=== PATIENT | female | born 1950 | race Caucasian/White ===

== ENCOUNTER → 2017-07-15 | Outpatient (CLI) | payer MEDICARE ==
[~2017-07-15] MED LIST: ALBU0.08 NEB; ALBUAER3 INH; ALPR0.5T3; ALPR0.5T3 PO; AMLO2.5T PO; ASPI81TA81 PO; DIAZ5TAB; DULO1CAP3 PO; EPIP0.3I IM; FEXO15TA PO; FLUT1SPR5 EACH NARE; LEVO75TA3 PO; PERC5TAB12 PO; TERC0.8C
[2017-07-15 09:41] LABS: BLOOD, URINE NEG (NEG); COMMENT (UR) CULT NOT INDICATED; CULTURE IF INDICATED CULT NOT INDICATED; GLUCOSE,URINE NEG (NEG); KETONE, URINE NEG (NEG); MUCUS URINE FEW /lpf (OCC); NITRITE,URINE NEG (NEG); SQUAMOUS EPITHELIAL CELL URINE <1 /hpf (0-5); URINE COLOR YELLOW (YELLW/STRAW)
[2017-07-15 09:53] LABS: APTT (PATIENT) 26.8 SEC (24.3-30.1); INTERNATIONAL NORMALIZED RATIO 0.9 RATIO; PROTHROMBIN TIME - PATIENT 10.4 SEC (9.8-11.6)
--- NOTE | 2017-07-15 10:14 | RADRPT ---
EXAM DATE/TIME: 07/15/2017 09:57 [place] COMPARISON: No previous studies available for comparison. INDICATIONS : Evaluate for pneumonia, pneumothorax or communicable disease back surgery 07/21 MEDICAL HISTORY : Hypertension. Asthma SURGICAL HISTORY : None. ENCOUNTER: Initial ACUITY: 1 day PAIN SCORE: 0/10 LOCATION: chest FINDINGS: PA and lateral views of the chest demonstrate the lungs to be symmetrically aerated without evidence of mass, infiltrate or effusion. The cardiomediastinal contours are unremarkable. Osseous structure s are intact. CONCLUSION: Normal examination for a patient of this age. Juanjo Mckeon MD on July 15, 2017 at 10:12 Board Certified Radiologist. This report was verified electronically.
== END ==
LOC: CPRE 08:18
PROVIDERS: ATTEND Neurological Surgery
DX: Z01.812 Encounter for preprocedural laboratory examination (principal); M43.10 Spondylolisthesis, site unspecified; Z01.818 Encounter for other preprocedural examination
CPT/HCPCS: 36415; 71020; 81001; 85610; 85730

== ENCOUNTER 2017-07-21 06:04 | Inpatient (IN) | payer MEDICARE ==
[~2017-07-21] VITALS: Ht 167.6 cm; Wt 78.2 kg
[~2017-07-21 06:04] MED LIST changes: -ALPR0.5T3; -DIAZ5TAB
[2017-07-21] MEDS ORDERED: SODIUM CHLORID 0.9% 500 ML IV PRN (06:30)
[2017-07-21] MEDS ORDERED: POVIDONE IODINE 5% (ANTISEPSIS KIT) 4 APPLICATIONS EACH NARE PRN (06:30)
[2017-07-21] MEDS ORDERED: INSULIN HUMAN REGULAR 1,000 UNITS/10 ML VIAL SQ PRN (06:30)
[2017-07-21] MEDS ORDERED: LACTATED RINGER'S 1000 ML IV PRN (06:30)
[2017-07-21] MEDS ORDERED: METOPROLOL TARTRATE 25 MG TAB PO PRN (06:30)
[2017-07-21] MEDS ORDERED: CHLORHEXIDINE GLUCONATE 2 % 1 PACK (2 CLOTHS) TOPICAL PRN (06:30)
[2017-07-21] MEDS ORDERED: SODIUM CHLOR 0.9% 1000 ML INJ 1,000 ML IV SCH (06:45)
[2017-07-21] MEDS ORDERED: VANCOMYCIN HCL 1000 MG ON-CALL/NS 250 ML IV SCH ×2 (06:45)
[2017-07-21] MEDS ORDERED: ARTIFICIAL TEARS OPTH OINT 3.5 APPLIC/3.5 GM TUBO ONE (06:58)
[2017-07-21] MEDS ORDERED: ACETAMINOPHEN 1000 MG/100 ML 100 ML IV ONE (06:58)
[2017-07-21] MEDS ORDERED: FAMOTIDINE 20 MG/2 ML VIAL ONE (06:58)
[2017-07-21] MEDS ORDERED: PROPOFOL 500 MG/50 ML INJ 100 ML ONE (06:58)
[2017-07-21] MEDS ORDERED: VANCOMYCIN HCL 1000 MG VIAL ONE (07:27)
[2017-07-21] MEDS ORDERED: THROMBIN (TOPICAL) 5,000 UNIT VIAL ONE (07:27)
[2017-07-21] MEDS ORDERED: ceFAZolin 2 GM PREMIX 50 ML ONE (07:28)
[2017-07-21] MEDS ORDERED: BUPIVACAINE HCL PF 0.5% 30 ML VIAL ONE (07:29)
[2017-07-21] MEDS ORDERED: GENTAMICIN SULFATE 80 MG/2 ML VIAL ONE (07:29)
[2017-07-21] MEDS ORDERED: GELFOAM SIZE 100 ONE (07:29)
[2017-07-21] MEDS ORDERED: CHLORHEXIDINE GLUCONATE 2 % 1 PACK (2 CLOTHS) TOPICAL SCH (09:00)
[2017-07-21] MEDS ORDERED: RESP: ALBUTEROL 2.5 MG/3 ML NEB (PRN) NEB (10:00)
[2017-07-21] MEDS ORDERED: ALBUTEROL SULFATE 90 MCG/ACT HFA 8 GM INHALER INH PRN (10:00)
[2017-07-21] MEDS ORDERED: MORPHINE SULFATE 4 MG/ML INJ IV PUSH PRN ×2 (10:00)
[2017-07-21] MEDS ORDERED: EPINEPHrine HCL 0.3 MG SYR IM PRN (10:00)
[2017-07-21] MEDS ORDERED: ACETAMINOPHEN 325 MG TAB PO PRN (10:00)
[2017-07-21] MEDS ORDERED: ALPRAZolam 0.5 MG TAB PO PRN (10:00)
[2017-07-21] MEDS ORDERED: SODIUM CHLORIDE 0.9% FLUSH 5 ML FLUSH IVF PRN (10:00)
[2017-07-21] MEDS ORDERED: oxyCODONE/ACETAMINOPHEN 5 MG/325 MG TAB PO PRN (10:00)
[2017-07-21] MEDS ORDERED: NALOXONE HCL 0.4 MG/ML AMP IV PUSH PRN ×2 (10:00→14:45)
[2017-07-21] MEDS ORDERED: ceFAZolin 2 GM PREMIX 50 ML IV ONE (11:10)
[2017-07-21] MEDS ORDERED: DO NOT ADM ANY ANTICOAGULANT DRUGS PRN (13:30)
[2017-07-21] MEDS: NS + KCL 20 MEQ INJ 1,000 ML IV SCH ×2 (13:30→20:26)
[2017-07-21] MEDS: PCA - TOTAL MG DILAUDID DELIVERED PER SHIFT SCH ×2 (14:00→21:57)
--- NOTE | 2017-07-21 14:09 | PD.OP ---
Operative Report Date of Surgery: Jul 21, 2017 Preoperative Diagnosis: spondylolisthesis L4-L5 Postoperative Diagnosis: spondylolisthesis L4-L5 Procedure: L4-5 redo lumbar laminectomy, interbody arthrodhesis using PEEK cage and autologous bone graft, L4-5 instrumental fixation using transpedicular screws and rods, L4-5 posterolateral fusion using autologous bone graft and rods. Microsurgical dissection Anesthesia: general Surgeon: Dilip Werner Learning Analyst(s): Rosalba Vernon Operation and Findings: INDICATIONS FOR THE SURGICAL PROCEDURE Ms Booker is a 67 year-old female who presented with intractable mechanical back pain and nick evidence of L5 lower extremity radiculopathy. She has history of prior L4-5 laminectomy, and developed spondylolisthesis. The patient has failed maximum nonsurgical management including multiple modalities of conservative treatment as well as pain management interventions by an interventional pain specialist. A surgical decompression and arthrodhesis were indicated as a last resort. The [id number] details of the procedure, indications, alternatives, risks and potential complications were fully discussed with the patient. The patient fully understood. All the questions were answered. No guarantees were given. The patient voiced requesting the procedure and provided informed consents. The patient was offered the alternative of delaying the procedure and continuing with nonsurgical management. DETAILS OF THE SURGICAL PROCEDURE Prior to the procedure, the surgical incision was marked in the preoperative surgical holding room, and the procedure, risks, and potential complications revisited with the patient. Placement of electrodes for intraoperative neurophysiological monitoring was completed. The patient was taken to the operative room, and following induction of general anesthesia, endotracheal intubation was performed. A Felton catheter, bilateral ARTI hose and sequential compression devices were placed and kept throughout the procedure. The patient was positioned prone, over a Van table over a Everette frame. All pressure in the preoperative surgical holding room points were carefully padded with eggcrate and gel mattress. The eyes were tapped shut after ointment was applied by the anesthesiologist to prevent corneal abrasion. A Rock hugger was placed over the expossed lower body to maintain control of the core body temperature. The electrophysiological team placed the needles and electrodes in their proper location and baseline SSEP's and motor evoked potentials were registered prior and following the positioning. The entrance to each pedicles was marked using a C arm. The lumbar region was prepped and draped in the usual sterile fashion. The surgical procedure was performed in several steps as follow: SURGICAL APPROACH Once the patient was positioned, a localizing cross-table lateral x-ray was performed with a C-arm. Two paramedian small incisions were outlined on the skin approximately 3cm from the midline. The skin incisions were made with a # 10 blade. Small bleeders were controlled with the cautery. The dissection was then carried out into deper planes and through the thoracolumbar fascia with a Bovie. The intermuscular septum was identified and the muscles were blunted dissected along the septum. The facets and transverse process of L4 and L5 were exposed and the proper anatomical landmarks were identified. A microsurgical self-retaining retractor was placed on the incision, and a localizing lateralizing cross-table x-ray was performed with an instrument underneath a lamina of the lumbar spine. There was a bilateral pars defect with gross instability of the bony structures. INSTRUMENTAL FIXATION At this point in the procedure, placement of bilateral transpedicular screws was necessary for stabilization of the spine. Initially, the entry point for the screw was selected anatomically at the junction of the facet, with the transverse process, and the pars interarticularis at L5 and at the sacrum. This was started with a Giamshetti needle, followed by the use of an solorzano wire, and then a tap was used to create the threads for the screws. Finally bilateral transpedicular screws were carefully placed bilaterally at L4 and L5 under fluoroscopic visualization. An appropriate purchase was achieved with all screws. The position of each screw was assessed anatomically with an AP, lateral , oblique Xrays. An intraoperative scan view of the spine was then performed using the iso-centric c-arm. Each screw was then assessed electrophysiologically with a nerve stimulator. SURGICAL DECOMPRESSION There was significant mass effect with compression of the neural structures. In order to relieve neural compression, it was necessary to perform a decompressive laminectomy, with decompression of the spinal canal and bilateral lateral recesses. Note that the scope of such decompression was significantly more extensive than the minimal exposure necessary to perform an interbody fusion, as there was extreme facet arthropathy with near complete collapse of the disk spaces and severe stenosis cause by the hyperthrophic joint facets. At this point of the procedure the operative microscope was draped in the usual sterile fashion and brought to the field. The rest of the surgical procedure was performed using microdissection technique with the exception of the closure. Once the level was confirmed, the margins of the prior laminectomy were exposed. There was extensive scar tissue from the prior surgery. Once the bony margins were exposed, a laminectomy was performed extending slightly the prior opening using the TPS drill with an AM-8 drill bit. A medial facetectomy was performed and the superior free border of the ligamentum flavum was dissected with a ligament dissector and removed with a thin footplate 2 mm Kerrison. The scar tssue was carefully dissected from the dural sac and the L5 nerve root was identified and followed towards its exit in the foramen. A foraminotomy was done. Epidural veins located laterally to the dural sac were coagulated with the bipolar cautery, and then incised using microscissors. Gentle medial retraction of the dural sac allowed me to expose the disc space for the discectomy. Upon completion of the discectomy, an excellent decompression of the neural structures was achieved. INTERBODY ARTHRODHESIS In order to correct the narrowing of the disk space and maintain distraction of the space, and to achieve a solid interbody fusion, it was necessary the insertion of an interbody device into the disk space. Otherwise, the disk space would collapse, compromising the result of the surgical procedure. At this point of the procedure, the annulus fibrosus of the disk was carefully coagulated with a bipolar cautery and incised using an 11 bladed knife. Then, a microdiscectomy was carried out in a standard fashion using a combination of straight and up-biting pituitary forceps. A reverse angle curette was applied underneath the posterior longitudinal ligament, and used to push the disk fragments into the disk space, so they can be safely removed with a pituitary forceps. Once the discectomy was completed, it was necessary to decorticate the endplates, in order to eliminate the cartilaginous endplate and to expose healthy bone appropriate to perform the interbody fusion. The endplates at L4-5 were then thoroughly decorticated using increasing size bone nayeli and ring curets, eliminating the cartilaginous fragments from both, the superior and inferior endplates. A disk space distractor was applied to the pedicle screws and gentle distraction was applied. This maneuver was assisted by the use of a disk distractor. Once a thorough preparation of the disk space was achieved, the disk space was irrigated with antibiotic solution, and the interbody fusion was performed by carefully impacting expandable PPEK cage filled with autologous iliac crest bone graft. The cage was properly deployed and thereafter packed with further bone graft by the use of a funnel. A solid position of the cage with good purchase was achieved at both levels. The position of the cages were assessed anatomically with a probe and radiologically with the C-arm. POSTEROLATERAL FUSION The posterolateral fusion is a critical component to the procedure, to prevent future fatigue and failure of the instrumental fixation. Initially, the transverse processes of the vertebral bodies, lateral surface of the facets and the lateral gutters of the spine were carefully cleaned, eliminating all soft tissue and muscle attachments. The area was then irrigated with a large amount of antibiotic solution. Subsequently, the transverse processes, lateral surface of the facets, and lateral gutters of the spine were thoroughly decorticated using the TPS drill with a 5mm cutting antionette, exposing cancellous bone, in preparation for the posterolateral fusion. The incision was again irrigated with antibiotic solution. Then, the posterolateral fusion was then performed by carefully packing the lateral gutters of the spine at L4-5 with autologous bone combined with demineralized bone matrix. I packed as much bone as possible. COMPLETION OF THE INSTRUMENTATION AND CLOSURE The rods were brought to the field, applied to all the screws, and the screw caps were sequentially applied. Compression was performed between the pedicle screws, and final tightening of the screws was completed using a torque wrench The incision was again thoroughly irrigated with several liters of antibiotic solution, and hemostasis secured with the bipolar cautery. A Valsalva Maneuver performed by the anesthesiologist failed to show any evidence of cerebrospinal fluid leak or bleeding. A 7 mm Van-Frost drain was left in the epidural space and externalized through a separate stab incision. The incision was then closed in planes. 0 Vicryl was used in an interrupted fashion to close the thoracolumbar fascia and the superficial fascia. The subcutaneous tissue was then approximated using 3-0 Vicryl in an interrupted fashion. Special care was taken to avoid space. The skin was then closed with 4-0 Vicryl in a running, subcuticular fashion. Dermabond was applied to the skin. Each plane of closure was irrigated with antibiotic solution. At the end of the procedure the sponge, needle and instrument counts were all correct. Estimated blood loss was 200 cc or less. No blood transfusion was given. The entire procedure was performed using continuous electrophysiological monitoring of the somatosensorial evoked potentials and EMG. The patient received prophylactic antibiotics. The patient was then extubated and transferred to the recovery room in stable condition. Dilip Werner MD Jul 21, 2017 14:09
[2017-07-21] MEDS ORDERED: FLUTICASONE PROPIONATE 50 MCG/ACT 16 GM NASAL SPRAY EACH NARE PRN (14:30)
--- NOTE | 2017-07-21 14:40 | PD.CONS ---
HPI Service [facility] Consult Requested By Dr. Werner Reason for Consult Medical management Primary Care Physician Beatrice Steiner MD Diagnoses: History of Present Illness Ms. Zuleta is a 67-year-old female who presented with intractable mechanical back pain and nick evidence of L5 lower extremity radiculopathy. Patient has a history of prior L4 to L5 laminectomy and developed spondylolisthesis. Patient has failed maximal nonsurgical management including multiple modalities of conservative treatment as well as pain management interventions by interventional pain specialist. Patient underwent a surgical decompression and arthrodesis as last resort Patient underwent instrumental fixation of L4 and L5 as well as surgical decompression as well as interbody arthrodesis and posterior lateral fusion by Dr. Werner tolerated procedure well We have been asked to help regarding medical management Review of Systems Constitutional: DENIES: Diaphoretic episodes, Fatigue, Fever, Weight gain, Weight loss, Chills, Dizziness, Change in appetite Endocrine: DENIES: Abnorml menstrual pattern, Heat/cold intolerance, Polydipsia , Polyuria Eyes: DENIES: Blurred vision, Diplopia, Eye inflammation, Eye pain, Vision loss , Photosensitivity Ears, nose, mouth, throat: DENIES: Tinnitus, Hearing loss, Vertigo, Nasal discharge, Oral lesions, Throat pain, Hoarseness Respiratory: DENIES: Apneas, Cough, Snoring, Wheezing, Hemoptysis, Sputum production Cardiovascular: DENIES: Chest pain, Palpitations, Syncope, Dyspnea on Exertion , PND, Lower Extremity Edema Gastrointestinal: DENIES: Abdominal pain, Black stools, Bloody stools, Constipation, Diarrhea, Nausea, Vomiting Genitourinary: DENIES: Abnormal vaginal bleeding, Dysmenorrhea, Dyspareunia, Sexual dysfunction Musculoskeletal: DENIES: Joint pain, Muscle aches, Stiffness, Joint Swelling Integumentary: DENIES: Abnormal pigmentation, Pruritus, Rash, Nail changes, Breast masses Hematologic/lymphatic: DENIES: Bruising, Lymphadenopathy Immunologic/allergic: DENIES: Eczema, Urticaria Neurologic: DENIES: Abnormal gait, Headache, Localized weakness, Paresthesias, Seizures, Speech Problems Psychiatric: DENIES: Anxiety, Confusion, Mood changes, Depression, Hallucinations Past Family Social History Allergies: Coded Allergies: clindamycin (Unverified Allergy, Severe, DIARRHEA, 07/21/17) levofloxacin (Unverified Allergy, Severe, DIARRHEA, 07/21/17) Past Medical History Hypothyroidism Carpal tunnel surgery on the left Hypertension hyperlipidemia Asthma Chronic CPAP use for sleep apnea History of uterine cancer status post complete hysterectomy Osteoarthritis History of rib removal left arm surgery History of left hand carpal tunnel left arm and left rib removal History of lumbar surgery with black lumbar laminectomy in the past depression and anxiety Tobacco abuse quit history of uterine cancer History of spinal surgery and bilateral eyelids as well as cataracts Past Surgical History Cataract surgery bilaterally Hysterectomy for uterine cancer Carpal tunnel surgery on the left Rib removal left arm surgery left hand carpal tunnel surgery Left arm and left rib removal history of lumbar laminectomy history of spinal surgery history of bilateral eyelid surgery Reported Medications Reported Meds & Active Scripts Active Percocet (Oxycodone-Acetaminophen) 5-325 mg Tab 1 Tab PO Q8HR PRN Albuterol Neb (Albuterol Sulfate) 2.5 Mg/3 Ml Neb 2.5 Mg NEB Q4HR NEB PRN Reported Alprazolam 0.5 Mg Tab 0.5 Mg PO Q6H PRN Terconazole Vaginal Cream 0.8 % Cream Aspir-81 (Aspirin) 81 Mg Tabdr 81 Mg PO DAILY Epipen 2-Bertin Inj (Epinephrine) 0.3 Mg/0.3 Ml Pfpen 0.3 Mg IM ONCE PRN Duloxetine DR (Duloxetine HCl) 60 Mg Capdr 60 Mg PO DAILY Belén Allergy (Fexofenadine HCl) 180 Mg Tab 180 Mg PO DAILY Levothyroxine (Levothyroxine Sodium) 75 Mcg Tab 75 Mcg PO DAILY PRN Proair Hfa 8.5 GM Inh (Albuterol Sulfate) 90 Mcg/Act Aer 1 Puff INH Q4H PRN 108 mcg/actuation Flonase Nasal Nerinx (Fluticasone Nasal Nerinx) 50 Mcg/Act Nerinx 50 Mcg EACH NARE BID Amlodipine (Amlodipine Besylate) 2.5 Mg Tab 2.5 Mg PO DAILY Active Ordered Medications Current Medications Lactated Ringer's 1,000 ml @ 30 mls/hr Q24H PRN IV SEE LABEL COMMENTS Last administered on 07/21/17t 07:00; Start 07/21/17 at 06:30; Stop 07/21/17 at 14 :29; Status DC Sodium Chloride 500 ml @ 30 mls/hr [id number] PRN IV SEE LABEL COMMENTS; Start at 06:30; Stop 07/21/17 at 14:29; Status DC Metoprolol Tartrate (Lopressor) 25 mg TELEPHONE APPOINTMENT CLERK PRN PO SEE LABEL COMMENTS; Start 07/21/17 at 06:30; Stop 07/24/17 at 06:29 Povidone Iodine (Betadine 5% Antisepsis Kit) 1 applic TELEPHONE APPOINTMENT CLERK PRN EACH NARE SEE LABEL COMMENTS Last administered on 07/21/17 07:00; Start 07/21/17 at 06: 30; Stop 07/24/17 at 06:29 Chlorhexidine Gluconate (Chlorhexidine 2% Cloth) 3 pack TELEPHONE APPOINTMENT CLERK PRN TOPICAL SEE LABEL COMMENTS Last administered on 07/21/17 06:45; Start 07/21/17 at 06: 30; Stop 07/24/17 at 06:29 Insulin Human Regular (NovoLIN R INJ) See Protocol Table ... TELEPHONE APPOINTMENT CLERK PRN SQ SEE PROTOCOL TABLE; Start 07/21/17 at 06:30; Stop 07/24/17 at 06:29 Sodium Chloride 1,000 ml @ 30 mls/hr Q24H IV ; Start 07/21/17 at 06:45; Stop 07/21/17 at 14:29; Status DC Vancomycin HCl 1000 mg/Sodium Chloride 250 ml @ 250 mls/hr TELEPHONE APPOINTMENT CLERK IV Last administered on 07/21/17 08:13; Start 07/21/17 at 06:45; Stop 07/24/17 at 06 :44 Chlorhexidine Gluconate (Chlorhexidine 2% Cloth) 1 pack DAILY TOPICAL ; Start 07/21/17 at 09:00; Stop 07/23/17 at 09:01 Acetaminophen 100 ml @ As Directed STK-MED ONCE IV ; Start 07/21/17 at 06:58; Stop 07/21/17 at 06:59; Status DC Propofol 100 ml @ As Directed STK-MED ONCE .ROUTE ; Start 07/21/17 at 06:58; Stop 07/21/17 at 06:59; Status DC Artificial Tears (Lacrilube Opht Oint) 3.5 applic STK-MED ONCE .ROUTE ; Start 07/21/17 at 06:58; Stop 07/21/17 at 06:59; Status DC Famotidine (Pepcid Inj) 20 mg STK-MED ONCE .ROUTE ; Start 07/21/17 at 06:58; Stop 07/21/17 at 06:59; Status DC Vancomycin HCl (Vancomycin Inj) 1,000 mg STK-MED ONCE .ROUTE Last administered on 07/21/17 11:00; Start 07/21/17 at 07:27; Stop 07/21/17 at 07:28; Status DC Thrombin (Thrombin Top Soln) 10,000 units STK-MED ONCE .ROUTE Last administered on 07/21/17 11:00; Start 07/21/17 at 07:27; Stop 07/21/17 at 07 :28; Status DC Cefazolin Sodium/ Dextrose 50 ml @ As Directed STK-MED ONCE .ROUTE ; Start at 07:28; Stop 07/21/17 at 07:29; Status DC Bupivacaine HCl (Marcaine Pf 0.5% Inj) 30 ml STK-MED ONCE .ROUTE Last administered on 07/21/17 11:00; Start 07/21/17 at 07:29; Stop 07/21/17 at 07 :30; Status DC Gelatin (Gelfoam 100 Top) 1 foam STK-MED ONCE .ROUTE Last administered on 07/21 11:00; Start 07/21/17 at 07:29; Stop 07/21/17 at 07:30; Status DC Gentamicin Sulfate (Gentamicin Inj) 240 mg STK-MED ONCE .ROUTE Last administered on 07/21/17 11:00; Start 07/21/17 at 07:29; Stop 07/21/17 at 07 :30; Status DC Potassium Chloride/Sodium Chloride 1,000 ml @ 100 mls/hr Q10H IV ; Start 07/21 at 10:00 IV Flush (NS Flush) 2 ml UNSCH PRN IVF FLUSH AFTER USING IV ACCESS; Start at 10:00 IV Flush (NS Flush) 2 ml BID IVF ; Start 07/21/17 at 21:00 Cefazolin Sodium/ Dextrose 50 ml @ 100 mls/hr Q8H IV ; Start 07/21/17 at 18:00 ; Stop 07/22/17 at 10:29 Pantoprazole Sodium (Protonix Inj) 40 mg DAILY IVP ; Start 07/22/17 at 09:00 Morphine Sulfate (Morphine Inj) 2 mg Q2H PRN IV PUSH PAIN SCALE 1 TO 6; Start 07/21/17 at 10:00 Morphine Sulfate (Morphine Inj) 4 mg Q2H PRN IV PUSH PAIN SCALE 7 TO 10; Start 07/21/17 at 10:00 Acetaminophen (Tylenol) 650 mg Q4H PRN PO TEMPERATURE > 101.5 F; Start at 10:00 Naloxone HCl (Narcan Inj) 0.4 mg UNSCH PRN IV PUSH RESPIRATORY RATE LESS THAN 10; Start 07/21/17 at 10:00 Diphenhydramine HCl (Benadryl Inj) 25 mg Q6H PRN IV PUSH ITCHING; Start at 10:00 Hydromorphone HCl (Dilaudid HAIR DRYER Inj) 6 mg UNSCH IV ; Start 07/21/17 at 14:00 HAIR DRYER Dosage Infused (Pha) 1 Q8HR .XX ; Start 07/21/17 at 14:00 Albuterol Sulfate (Proair Hfa Inh) 1 puff Q4H PRN INH SHORTNESS OF BREATH; Start 07/21/17 at 10:00 Albuterol Sulfate (Albuterol Neb) 2.5 mg Q4HR NEB PRN NEB SHORTNESS OF BREATH; Start 07/21/17 at 10:00 Alprazolam (Xanax) 0.5 mg Q6H PRN PO ANXIETY; Start 07/21/17 at 10:00 Amlodipine Besylate (Norvasc) 2.5 mg DAILY PO ; Start 07/22/17 at 09:00 Duloxetine HCl (Cymbalta Dr) 60 mg DAILY PO ; Start 07/22/17 at 09:00 Epinephrine HCl (Epipen Inj) 0.3 mg ONCE PRN IM ALLERGIC REACTION; Start 07/21 at 10:00; Stop 07/26/17 at 09:59 Levothyroxine Sodium (Synthroid) 75 mcg DAILY PRN PO THY; Start 07/21/17 at 10 :00; Status UNV Oxycodone/ Acetaminophen (Percocet 5-325 Mg) 1 tab Q8HR PRN PO PAIN 1-10; Start 07/21/17 at 10:00 Loratadine (Claritin) 10 mg DAILY PO ; Start 07/22/17 at 09:00 Fluticasone Propionate (Flonase Joel Spr) 50 spray BID PRN EACH NARE ALLERGIES; Start 07/21/17 at 14:30 Cefazolin Sodium/ Dextrose 50 ml @ 100 mls/hr ONCE ONCE IV ; Start 07/21/17 at 11:10; Stop 07/21/17 at 14:16; Status DC Family History Heart disease Social History Former smoker occasional alcoholic beverage denies any illicit Physical Exam Vital Signs Vital Signs Date Time Temp Pulse Resp B/P (MAP) Pulse Ox O2 Delivery O2 Flow Rate FiO2 07/21/17 14:15 98 17 102/51 (68) 98 Nasal Cannula 3 07/21/17 14:00 95 17 115/53 (73) 100 Nasal Cannula 3 07/21/17 13:45 91 15 121/57 (78) 100 Nasal Cannula 3 07/21/17 13:34 97.7 88 15 129/60 (83) 100 Nasal Cannula 3 07/21/17 07:00 98.2 82 16 128/83 (98) 96 Physical Exam GENERAL: This is a well-nourished, well-developed patient, in no apparent distress. SKIN: No rashes, ecchymoses or lesions. Cool and dry. HEAD: Atraumatic. Normocephalic. No temporal or scalp tenderness. EYES: Pupils equal round and reactive. Extraocular motions intact. No scleral icterus. No injection or drainage. ENT: Nose without bleeding, purulent drainage or septal hematoma. Throat without erythema, tonsillar hypertrophy or exudate. Uvula midline. Airway patent. NECK: Trachea midline. No JVD or lymphadenopathy. Supple, nontender, no meningeal signs. CARDIOVASCULAR: Regular rate and rhythm without murmurs, gallops, or rubs. S1 and S2 no S3 or S4 RESPIRATORY: Clear to auscultation. Breath sounds equal bilaterally. No wheezes , rales, or rhonchi. GASTROINTESTINAL: Abdomen soft, non-tender, nondistended. No hepato-splenomegaly , or palpable masses. No guarding. MUSCULOSKELETAL: Extremities without clubbing, cyanosis, or edema. No joint tenderness, effusion, or edema noted. No calf tenderness. Negative Homans sign bilaterally. NEUROLOGICAL: Awake and alert. Cranial nerves II through XII intact. Motor and sensory grossly within normal limits. Five out of 5 muscle strength in all muscle groups. Normal speech. Felton catheter in place Insight and judgment is good mood and behavior is appropriate Assessment and Plan Problem List: (1) Hypertension ICD Code: I10 - Essential (primary) hypertension Status: Acute (2) History of uterine cancer ICD Code: Z85.42 - Personal history of malignant neoplasm of other parts of uterus Status: Acute (3) Anxiety and depression ICD Code: F41.9 - Anxiety disorder, unspecified; F32.9 - Major depressive disorder, single episode, unspecified Status: Acute (4) Hypothyroidism ICD Code: E03.9 - Hypothyroidism, unspecified Status: Acute (5) Hyperlipidemia ICD Code: E78.5 - Hyperlipidemia, unspecified Status: Acute (6) Chronic back pain ICD Code: M54.9 - Dorsalgia, unspecified; G89.29 - Other chronic pain Status: Acute Assessment and Plan Spinal surgery performed by Dr. Werner today Hypertension resume home medications Hyperlipidemia resume home medications Hypothyroidism resume home medications Asthma when necessary neb treatments Obstructive sleep apnea continue on CPAP Anxiety depression home medications History of uterine cancer status post hysterectomy Continue physical therapy and occupational therapy We'll check a.m. labs CBC CMP TSH free T4 hemoglobin A1c magnesium and phosphorus Code Status Full code Discussed Condition With Patient and RN and Rishi Solomon DO Jul 21, 2017 14:40
[2017-07-21] MEDS ORDERED: MAGNESIUM HYDROXIDE SUSP 30 ML CUP PO PRN (14:45)
[2017-07-21] MEDS ORDERED: LACTULOSE SYRUP 20 GM/30 ML CUP PO PRN (14:45)
[2017-07-21] MEDS ORDERED: SENNOSIDES 8.6 MG TAB PO PRN (14:45)
[2017-07-21] MEDS ORDERED: BISACODYL 10 MG SUPP RECTAL PRN (14:45)
[2017-07-21 15:30] VITALS: BP 100/56; PULSE 95; RESP 16; TEMP 96.9; O2SAT 97
--- NOTE | 2017-07-21 15:40 | RADRPT ---
EXAM DATE/TIME: 07/21/2017 09:46 [place] COMPARISON: No previous studies available for comparison. INDICATIONS : Herniated disk, stenosis, lumbar fusion. MEDICAL HISTORY : None. SURGICAL HISTORY : None. ENCOUNTER: Initial ACUITY: 1 day PAIN SCORE: Non-responsive. LOCATION: Lumbar spine FINDINGS: 3 fluoroscopic images of the lumbar spine are submitted. There is an interdiscal spacer with posterio r yudelka and screw fixation at L4-5. Hardware appears intact and well-positioned. Visualized vertebral b leonardo heights are maintained. Sagittal alignment is intact CONCLUSION: 1. Status post posterior fixation at L4-5 with intact sagittal alignment and no evidence for signific ant acute fracture, as above. Nick Alvarez MD on July 21, 2017 at 15:37 Board Certified Radiologist. This report was verified electronically.
[2017-07-21] MEDS: LEVOTHYROXINE SODIUM 75 MCG TAB PO SCH (16:00)
[2017-07-21] MEDS: diphenhydrAMINE HCL 50 MG/ML VIAL IV PUSH PRN ×2 (17:05→23:18)
[2017-07-21] MEDS: HYDROmorphone HCL PCA 6 MG/30 ML IV SCH (17:27)
[2017-07-21] MEDS: ceFAZolin 2 GM PREMIX 50 ML IV SCH (18:37)
[2017-07-21 20:00] VITALS: BP 105/49; PULSE 73; RESP 18; TEMP 97.5; O2SAT 97
[2017-07-21] MEDS: SODIUM CHLORIDE 0.9% FLUSH 5 ML FLUSH IVF SCH (20:26)
[2017-07-21] MEDS: DOCUSATE SODIUM 50 MG/SENNA 8.6 MG TAB PO SCH (20:26)
[2017-07-22] VITALS (8 sets, daily range): BP systolic 91–114; BP diastolic 45–64; PULSE 66–100; RESP 12–18; TEMP 95.9–98.4; O2SAT 92–98
[2017-07-22] MEDS: ceFAZolin 2 GM PREMIX 50 ML IV SCH ×2 (02:22→09:45)
[2017-07-22] MEDS: NS + KCL 20 MEQ INJ 1,000 ML IV SCH (04:37)
[2017-07-22] MEDS: HYDROmorphone HCL PCA 6 MG/30 ML IV SCH ×2 (04:43→13:33)
[2017-07-22] MEDS: PCA - TOTAL MG DILAUDID DELIVERED PER SHIFT SCH ×3 (05:32→22:00)
[2017-07-22] MEDS: LEVOTHYROXINE SODIUM 75 MCG TAB PO SCH (06:00)
[2017-07-22] MEDS: diphenhydrAMINE HCL 50 MG/ML VIAL IV PUSH PRN (06:40)
[2017-07-22 08:25] LABS: AUTOMATED NEUTROPHIL # 12.8 TH/MM3 (1.8-7.7); BASOPHIL % 0.1 % (0.0-2.0); HEMATOCRIT 31.5 % (35.0-46.0); HEMO FLAGS DIFF FINAL; LYMPH % 4.7 % (9.0-44.0); LYMPHOCYTE # 0.7 TH/MM3 (1.0-4.8); MEAN CELL VOLUME 90.2 FL (80.0-100.0); MEAN CORPUSCULAR HEMOGLOBIN 30.9 PG (27.0-34.0); MEAN CORPUSCULAR HGB CONC 34.2 % (32.0-36.0); MONO % 4.9 % (0.0-8.0); NEUT % 90.3 % (16.0-70.0); PLATELET COUNT 167 TH/MM3 (150-450); RED BLOOD COUNT 3.49 MIL/MM3 (4.00-5.30); RED CELL DISTRIBUTION WIDTH 12.3 % (11.6-17.2); WHITE BLOOD COUNT 14.2 TH/MM3 (4.0-11.0)
[2017-07-22] MEDS: amLODIPine BESYLATE 5 MG TAB PO SCH (09:00)
[2017-07-22 09:26] LABS: ANION GAP 9 MEQ/L (5-15); AST (GOT) 32 U/L (15-37); BICARBONATE 25.2 MEQ/L (21.0-32.0); BLOOD UREA NITROGEN 14 MG/DL (7-18); CHLORIDE 106 MEQ/L (98-107); GLOMERULAR FILTRATION RATE 65 ML/MIN (>89); MAGNESIUM 2.2 MG/DL (1.5-2.5); POTASSIUM 4.4 MEQ/L (3.5-5.1); SODIUM (NA) 140 MEQ/L (136-145)
--- NOTE | 2017-07-22 09:28 | HHI.PR ---
Subjective Remarks Patient in nad. Pain is controlled by meds. No n/v/d/c. Denies any fever or chills. No wheezing at this time. Some nonproductive cough, no fever or chills. Encouraged IS. No fever or chills. Objective Vitals Vital Signs Date Time Temp Pulse Resp B/P (MAP) Pulse Ox O2 Delivery O2 Flow Rate FiO2 07/22/17 04:00 97.9 96 18 112/57 (75) 97 07/22/17 00:00 97.8 100 18 114/57 (76) 96 07/21/17 20:00 97.5 73 18 105/49 (67) 97 07/21/17 17:27 15 07/21/17 15:30 96.9 95 16 100/56 (71) 97 07/21/17 14:30 97.8 96 16 106/55 (72) 98 Nasal Cannula 3 07/21/17 14:15 98 17 102/51 (68) 98 Nasal Cannula 3 07/21/17 14:00 95 17 115/53 (73) 100 Nasal Cannula 3 07/21/17 13:45 91 15 121/57 (78) 100 Nasal Cannula 3 07/21/17 13:34 97.7 88 15 129/60 (83) 100 Nasal Cannula 3 I/O 07/21/17 07/21/17 07/21/17 07/22/17 07/22/17 07/22/17 07:00 15:00 23:00 07:00 15:00 23:00 Intake Total 1575 ml 653 ml 867 ml Output Total 975 ml 515 ml Balance 600 ml 653 ml 352 ml Intake IV Total 75 ml 653 ml 867 ml Other 1500 ml Output Urine Total 800 ml 475 ml Drainage Total 25 ml 40 ml Estimated Blood Loss 150 ml Result Diagram: 07/22/17 0613 Imaging Last Impressions Lumbar Spine X-Ray 07/21/17 0000 Signed Impressions: Service Date/Time: Friday, July 21, 2017 09:46 - CONCLUSION: 1. Status post posterior fixation at L4-5 with intact sagittal alignment and no evidence for significant acute fracture, as above. Nick Alvarez MD Objective Remarks GENERAL: This is a well-nourished, well-developed patient, in no apparent distress. CARDIOVASCULAR: Regular rate and rhythm without murmurs, gallops, or rubs. S1 and S2 no S3 or S4 RESPIRATORY: Clear to auscultation. Breath sounds equal bilaterally. No wheezes , rales, or rhonchi. GASTROINTESTINAL: Abdomen soft, non-tender, nondistended. No hepato-splenomegaly , or palpable masses. No guarding. MUSCULOSKELETAL: Extremities without clubbing, cyanosis, or edema. No joint tenderness, effusion, or edema noted. No calf tenderness. Negative Homans sign bilaterally. NEUROLOGICAL: Awake and alert. Cranial nerves II through XII intact. Motor and sensory grossly within normal limits. Five out of 5 muscle strength in all muscle groups. Normal speech. Procedures Spondylolisthesis L4-L5 s/p L4-5 redo lumbar laminectomy, interbody arthrodhesis using PEEK cage and autologous bone graft, L4-5 instrumental fixation using transpedicular screws and rods, L4-5 posterolateral fusion using autologous bone graft and rods. Microsurgical dissection A/P Problem List: (1) Hypertension ICD Code: I10 - Essential (primary) hypertension Status: Acute (2) History of uterine cancer ICD Code: Z85.42 - Personal history of malignant neoplasm of other parts of uterus Status: Acute (3) Anxiety and depression ICD Code: F41.9 - Anxiety disorder, unspecified; F32.9 - Major depressive disorder, single episode, unspecified Status: Acute (4) Hypothyroidism ICD Code: E03.9 - Hypothyroidism, unspecified Status: Acute (5) Hyperlipidemia ICD Code: E78.5 - Hyperlipidemia, unspecified Status: Acute (6) Chronic back pain ICD Code: M54.9 - Dorsalgia, unspecified; G89.29 - Other chronic pain Status: Acute Assessment and Plan Spondylolisthesis L4-L5 s/p L4-5 redo lumbar laminectomy, interbody arthrodhesis using PEEK cage and autologous bone graft, L4-5 instrumental fixation using transpedicular screws and rods, L4-5 posterolateral fusion using autologous bone graft and rods. Microsurgical dissection performed by Dr. Werner 07/21/17 Hypertension resume home medications Hyperlipidemia resume home medications Hypothyroidism resume home medications Asthma when necessary neb treatments Obstructive sleep apnea continue on CPAP Anxiety /depression cont home medications History of uterine cancer status post hysterectomy Continue physical therapy and occupational therapy CBC CMP TSH free T4 hemoglobin A1c pending. Magnesium and phosphorus normal Code Status Full code Discussed Condition With Patient and nurse Candi Hennessy MD Jul 22, 2017 09:27
[2017-07-22 09:36] LABS: ALKALINE PHOSPHATASE 103 U/L (45-117); ALT (GPT) 23 U/L (10-53); FREE T4 1.12 NG/DL (0.76-1.46); TOTAL BILIRUBIN ADULT 0.3 MG/DL (0.2-1.0)
[2017-07-22] MEDS: LORATADINE 10 MG TAB PO SCH (09:46)
[2017-07-22] MEDS: PANTOPRAZOLE SODIUM 40 MG VIAL IVP SCH (09:46)
[2017-07-22] MEDS: DULoxetine HCl DR 60 MG CAP PO SCH (09:46)
[2017-07-22] MEDS: DOCUSATE SODIUM 50 MG/SENNA 8.6 MG TAB PO SCH ×2 (09:46→20:28)
[2017-07-22] MEDS: SODIUM CHLORIDE 0.9% FLUSH 5 ML FLUSH IVF SCH ×2 (09:46→21:00)
[2017-07-22] MEDS ORDERED: oxyCODONE/ACETAMINOPHEN 10 MG/325 MG TAB PO PRN (10:30)
[2017-07-22] MEDS ORDERED: diphenhydrAMINE HCL 25 MG CAP PO PRN (10:30)
--- NOTE | 2017-07-22 14:17 | HHI.NSPN ---
(Junie Walter) Note Status Status: Progress Note (Junie Walter) Interval History Interval History Ms. Booker underwent a L4-5 redo lumbar laminectomy, interbody arthrodhesis using PEEK cage and autologous bone graft, L4-5 instrumental fixation using transpedicular screws and rods, L4-5 posterolateral fusion using autologous bone graft and rods, microsurgical dissection on Jul 21, 2017 for spondylolisthesis. 07/22: pt doing well, eating her breakfast. her pain is controlled. (Junie Walter) Labs, Micro, & Vital Signs Results Date Time Temp Pulse Resp B/P (MAP) Pulse Ox O2 Delivery O2 Flow Rate FiO2 07/22/17 13:33 17 07/22/17 13:33 17 07/22/17 08:00 98.4 76 16 109/64 (79) 97 07/22/17 04:00 97.9 96 18 112/57 (75) 97 07/22/17 00:00 97.8 100 18 114/57 (76) 96 07/21/17 20:00 97.5 73 18 105/49 (67) 97 07/21/17 17:27 15 07/21/17 15:30 96.9 95 16 100/56 (71) 97 07/21/17 14:30 97.8 96 16 106/55 (72) 98 Nasal Cannula 3 07/21/17 14:15 98 17 102/51 (68) 98 Nasal Cannula 3 Constitutional Vital Signs Date Time Temp Pulse Resp B/P (MAP) Pulse Ox O2 Delivery O2 Flow Rate FiO2 07/22/17 13:33 17 07/22/17 13:33 17 07/22/17 08:00 98.4 76 16 109/64 (79) 97 07/22/17 04:00 97.9 96 18 112/57 (75) 97 07/22/17 00:00 97.8 100 18 114/57 (76) 96 07/21/17 20:00 97.5 73 18 105/49 (67) 97 07/21/17 17:27 15 07/21/17 15:30 96.9 95 16 100/56 (71) 97 07/21/17 14:30 97.8 96 16 106/55 (72) 98 Nasal Cannula 3 07/21/17 14:15 98 17 102/51 (68) 98 Nasal Cannula 3 (Junie Walter) Review of Systems Constitutional: DENIES: Fever, Chills Respiratory: DENIES: Shortness of breath Cardiovascular: DENIES: Chest pain (Junie Walter) Physical Exam Ms. Booker is alert, awake and oriented to time, place and person. Speech is appropriate. NAD. Eating her breakfast. Cranial nerve examination: pupils equal, round, and reactive to light. Facial motor are normal and symmetrical. Neck is soft and supple. Muscle strength is 5/5 in all muscle groups of both upper and lower extremities. (Junie Walter) Medications Current Medications Current Medications Medications (Trade) Dose Ordered Sig/[place] Route PRN Reason Start Time Stop Time Status Last Admin Dose Admin Metoprolol Tartrate (Lopressor) 25 mg REMOTELY OPERATED VEHICLE PRN PO SEE LABEL COMMENTS 07/21/17 06:30 07/24/17 06:29 Povidone Iodine (Betadine 5% Antisepsis Kit) 1 applic REMOTELY OPERATED VEHICLE PRN EACH NARE SEE LABEL COMMENTS 07/21/17 06:30 07/24/17 06:29 07/21/17 07:00 Chlorhexidine Gluconate (Chlorhexidine 2% Cloth) 3 pack REMOTELY OPERATED VEHICLE PRN TOPICAL SEE LABEL COMMENTS 07/21/17 06:30 07/24/17 06:29 07/21/17 06:45 Insulin Human Regular (NovoLIN R INJ) See Protocol Table ... REMOTELY OPERATED VEHICLE PRN SQ SEE PROTOCOL TABLE 07/21/17 06:30 07/24/17 06:29 Vancomycin HCl 1000 mg/Sodium Chloride 250 ml @ 250 mls/hr REMOTELY OPERATED VEHICLE IV 07/21/17 06:45 07/24/17 06:44 07/21/17 08:13 Chlorhexidine Gluconate (Chlorhexidine 2% Cloth) 1 pack DAILY TOPICAL 07/21/17 09:00 07/23/17 09:01 IV Flush (NS Flush) 2 ml UNSCH PRN IVF FLUSH AFTER USING IV ACCESS 07/21/17 10:00 IV Flush (NS Flush) 2 ml BID IVF 07/21/17 21:00 07/22/17 09:46 Pantoprazole Sodium (Protonix Inj) 40 mg DAILY IVP 07/22/17 09:00 07/22/17 09:46 Morphine Sulfate (Morphine Inj) 2 mg Q2H PRN IV PUSH breakthrough pain 07/21/17 10:00 Acetaminophen (Tylenol) 650 mg Q4H PRN PO TEMPERATURE > 101.5 F 07/21/17 10:00 Naloxone HCl (Narcan Inj) 0.4 mg UNSCH PRN IV PUSH RESPIRATORY RATE LESS THAN 10 07/21/17 10:00 Diphenhydramine HCl (Benadryl Inj) 25 mg Q6H PRN IV PUSH ITCHING 07/21/17 10:00 07/22/17 06:40 Hydromorphone HCl (Dilaudid HANDKERCHIEF CUTTER Inj) 6 mg UNSCH IV 07/21/17 14:00 07/22/17 13:33 HANDKERCHIEF CUTTER Dosage Infused (Pha) 1 Q8HR .XX 07/21/17 14:00 07/22/17 13:33 Albuterol Sulfate (Proair Hfa Inh) 1 puff Q4H PRN INH SHORTNESS OF BREATH 07/21/17 10:00 Albuterol Sulfate (Albuterol Neb) 2.5 mg Q4HR NEB PRN NEB SHORTNESS OF BREATH 07/21/17 10:00 Alprazolam (Xanax) 0.5 mg Q6H PRN PO ANXIETY 07/21/17 10:00 Amlodipine Besylate (Norvasc) 2.5 mg DAILY PO 07/22/17 09:00 Duloxetine HCl (Cymbalta Dr) 60 mg DAILY PO 07/22/17 09:00 07/22/17 09:46 Epinephrine HCl (Epipen Inj) 0.3 mg ONCE PRN IM ALLERGIC REACTION 07/21/17 10:00 07/26/17 09:59 Levothyroxine Sodium (Synthroid) 75 mcg DAILY PRN PO THY 07/21/17 10:00 UNV Loratadine (Claritin) 10 mg DAILY PO 07/22/17 09:00 07/22/17 09:46 Fluticasone Propionate (Flonase Joel Spr) 50 spray BID PRN EACH NARE ALLERGIES 07/21/17 14:30 Naloxone HCl (Narcan Inj) 0.4 mg UNSCH PRN IV PUSH SEE LABEL COMMENTS 07/21/17 14:45 Senna/Docusate Sodium (Little-Colace) 1 tab BID PO 07/21/17 21:00 07/22/17 09:46 Magnesium Hydroxide (Milk Of Magnesia Liq) 30 ml Q12H PRN PO Mild constipation 07/21/17 14:45 Sennosides (Senokot) 17.2 mg Q12H PRN PO Moderate constipation 07/21/17 14:45 07/22/17 09:46 Bisacodyl (Dulcolax Supp) 10 mg DAILY PRN RECTAL SEVERE CONSITIPATION 07/21/17 14:45 Lactulose (Lactulose Liq) 30 ml DAILY PRN PO SEVERE CONSITIPATION 07/21/17 14:45 Diphenhydramine HCl (Benadryl) 25 mg Q6H PRN PO itching 07/22/17 10:30 Tizanidine HCl (Zanaflex) 4 mg Q8H PRN PO MUSCLE SPASM 07/22/17 10:30 07/22/17 13:27 Oxycodone/ Acetaminophen (Percocet 10-325 Mg) 1 tab Q4H PRN PO PAIN SCALE 1 TO 5 07/22/17 10:30 Oxycodone/ Acetaminophen (Percocet 10-325 Mg) 2 tab Q4H PRN PO PAIN SCALE 6 TO 10 07/22/17 10:30 Albuterol/ Ipratropium (Duoneb Neb) 1 ampule ONCE ONCE NEB 07/22/17 12:45 07/22/17 12:46 UNV Albuterol/ Ipratropium (Duoneb Neb) 1 ampule Q4HR NEB PRN NEB sob/wheezing 07/22/17 12:45 UNV (Junie Walter) Medical Decision Making MDM Remarks 67 y/o female s/p L4-5 redo lumbar laminectomy, interbody arthrodesis using PEEK cage and autologous bone graft, L4-5 instrumental fixation using transpedicular screws and rods, L4-5 posterolateral fusion using autologous bone graft and rods (Junie Walter) Plan Plan Remarks cont pain control with HANDKERCHIEF CUTTER pump with oral pain medications prn start on muscle relaxants prn for spasms, cont LUISANA draining, clear to dc centeno catheter PT, start mobilizing OOB with TLSO medical assistance appreciated cont nonchemical dvt prophylaxis (Junie Walter) Attending Statement The exam, history, and the medical decision-making described in the above note were completed with the assistance of the mid-level provider. I reviewed and agree with the findings presented. I attest that I had a [id number] encounter with the patient on the same day, and personally performed and documented my assessment and findings in the medical record. (Dilip Werner MD) Junie Walter Jul 22, 2017 14:16 Dilip Werner MD Jul 25, 2017 22:17
[2017-07-22] MEDS ORDERED: RESP: ALBUTEROL 2.5 MG/IPRATROPIUM 0.5 MG NEB (SCH) NEB ONE (14:45)
[2017-07-22 15:46] LABS: HEMOGLOBIN A1b 0.8 %; HEMOGLOBIN Ao 86.4 %; HEMOGLOBIN F 0.9 %; HEMOGLOBIN P3 3.4 %
[2017-07-22] MEDS ORDERED: RESP: ALBUTEROL 2.5 MG/IPRATROPIUM 0.5 MG NEB (PRN) NEB (16:00)
[2017-07-22] MEDS: oxyCODONE/ACETAMINOPHEN 10 MG/325 MG TAB PO PRN (20:30)
[2017-07-23 00:15] VITALS: BP 103/49; O2SAT 96
[2017-07-23] MEDS: oxyCODONE/ACETAMINOPHEN 10 MG/325 MG TAB PO PRN ×3 (01:45→11:22)
[2017-07-23 06:00] VITALS: RESP 18
[2017-07-23] MEDS: PCA - TOTAL MG DILAUDID DELIVERED PER SHIFT SCH ×2 (06:00→14:00)
[2017-07-23] MEDS: LEVOTHYROXINE SODIUM 75 MCG TAB PO SCH (06:21)
[2017-07-23 07:45] VITALS: BP 100/50; PULSE 60; RESP 18; TEMP 96.7; O2SAT 95
--- NOTE | 2017-07-23 08:27 | HHI.PR ---
Subjective Remarks Feels better today. Deneis chest pain ors sob, she is not wheezing. Ambulates with the vest on. No fever or chills. No cough. Able to eat, appetite is well. Did not have a BM yet. No n/v/d. Drain in the back c/d/i. Objective Vitals Vital Signs Date Time Temp Pulse Resp B/P (MAP) Pulse Ox O2 Delivery O2 Flow Rate FiO2 07/23/17 07:45 96.7 60 18 100/50 (67) 95 07/23/17 06:00 18 07/23/17 06:00 18 07/23/17 00:15 103/49 (67) 96 07/22/17 23:40 96.6 66 17 91/45 (60) 92 07/22/17 22:00 17 07/22/17 22:00 17 07/22/17 19:32 95.9 73 12 92/45 (61) 98 07/22/17 16:18 97.8 76 16 104/58 (73) 98 07/22/17 13:33 17 07/22/17 13:33 17 07/22/17 12:00 97.7 83 16 100/50 (67) 93 I/O 07/22/17 07/22/17 07/22/17 07/23/17 07/23/17 07/23/17 07:00 15:00 23:00 07:00 15:00 23:00 Intake Total 867 ml 650 ml 360 ml 720 ml Output Total 515 ml 995 ml 450 ml 840 ml Balance 352 ml -345 ml -90 ml -120 ml Intake Oral 600 ml 360 ml 720 ml IV Total 867 ml 50 ml Output Urine Total 475 ml 950 ml 450 ml 750 ml Drainage Total 40 ml 45 ml 90 ml # Voids 1 # Bowel Movements 0 0 0 Result Diagram: 07/22/1761207/22/17612 Imaging Last Impressions Lumbar Spine X-Ray 07/21/17 0000 Signed Impressions: Service Date/Time: Friday, July 21, 2017 09:46 - CONCLUSION: 1. Status post posterior fixation at L4-5 with intact sagittal alignment and no evidence for significant acute fracture, as above. Nick Alvarez MD Objective Remarks GENERAL: This is a well-nourished, well-developed patient, in no apparent distress. CARDIOVASCULAR: Regular rate and rhythm without murmurs, gallops, or rubs. S1 and S2 no S3 or S4 RESPIRATORY: Clear to auscultation. Breath sounds equal bilaterally. No wheezes , rales, or rhonchi. GASTROINTESTINAL: Abdomen soft, non-tender, nondistended. No hepato-splenomegaly , or palpable masses. No guarding. MUSCULOSKELETAL: Drain in the back c/d/i. Extremities without clubbing, cyanosis , or edema. No joint tenderness, effusion, or edema noted. No calf tenderness. Negative Homans sign bilaterally. NEUROLOGICAL: Awake and alert. Cranial nerves II through XII intact. Motor and sensory grossly within normal limits. Five out of 5 muscle strength in all muscle groups. Normal speech. Procedures Spondylolisthesis L4-L5 s/p L4-5 redo lumbar laminectomy, interbody arthrodhesis using PEEK cage and autologous bone graft, L4-5 instrumental fixation using transpedicular screws and rods, L4-5 posterolateral fusion using autologous bone graft and rods. Microsurgical dissection A/P Problem List: (1) Hypertension ICD Code: I10 - Essential (primary) hypertension Status: Acute (2) History of uterine cancer ICD Code: Z85.42 - Personal history of malignant neoplasm of other parts of uterus Status: Acute (3) Anxiety and depression ICD Code: F41.9 - Anxiety disorder, unspecified; F32.9 - Major depressive disorder, single episode, unspecified Status: Acute (4) Hypothyroidism ICD Code: E03.9 - Hypothyroidism, unspecified Status: Acute (5) Hyperlipidemia ICD Code: E78.5 - Hyperlipidemia, unspecified Status: Acute (6) Chronic back pain ICD Code: M54.9 - Dorsalgia, unspecified; G89.29 - Other chronic pain Status: Acute Assessment and Plan Spondylolisthesis L4-L5 s/p L4-5 redo lumbar laminectomy, interbody arthrodhesis using PEEK cage and autologous bone graft, L4-5 instrumental fixation using transpedicular screws and rods, L4-5 posterolateral fusion using autologous bone graft and rods. Microsurgical dissection performed by Dr. Werner 07/21/17 Hypertension resume home medications Hyperlipidemia resume home medications Hypothyroidism resume home medications Asthma when necessary neb treatments Obstructive sleep apnea continue on CPAP Anxiety /depression cont home medications History of uterine cancer status post hysterectomy Constipation: Bowel prep regimen Continue physical therapy and occupational therapy CBC CMP TSH free T4 hemoglobin A1c pending. Magnesium and phosphorus normal Code Status Full code Discussed Condition With Patient and nurse Stable medically, can be discharged from medical standpoint, Candi Hennessy MD Jul 23, 2017 08:27
[2017-07-23] MEDS: DULoxetine HCl DR 60 MG CAP PO SCH (08:35)
[2017-07-23] MEDS: PANTOPRAZOLE SODIUM 40 MG VIAL IVP SCH (08:35)
[2017-07-23] MEDS: DOCUSATE SODIUM 50 MG/SENNA 8.6 MG TAB PO SCH (08:35)
[2017-07-23] MEDS: LORATADINE 10 MG TAB PO SCH (08:35)
[2017-07-23] MEDS: SODIUM CHLORIDE 0.9% FLUSH 5 ML FLUSH IVF SCH (08:51)
[2017-07-23] MEDS: amLODIPine BESYLATE 5 MG TAB PO SCH (08:51)
[2017-07-23] MEDS ORDERED: TIZA4 PO (09:28)
[2017-07-23] MEDS ORDERED: OXYC1TAB36 PO (09:28)
--- NOTE | 2017-07-23 10:37 | HHI.DCPOC ---
Discharge Care Plan Diagnosis: (1) S/P lumbar spinal fusion Goals to Promote Your Health * To prevent worsening of your condition and complications * To maintain your health at the optimal level Directions to Meet Your Goals Take your medications as prescribed Follow your dietary instruction Follow activity as directed Keep your appointments as scheduled Take your immunizations and boosters as scheduled If your symptoms worsen call your PCP, if no PCP go to Urgent Care Center or Emergency Room Smoking is Dangerous to Your Health. Avoid second hand smoke Call the 24-hour hour crisis hotline for domestic abuse at Junie Walter Jul 23, 2017 10:37
--- NOTE | 2017-07-23 10:38 | HHI.DS ---
Discharge Summary Admission Date Jul 21, 2017 at 06:04 Discharge Date: Jul 23, 2017 Admitting Diagnosis s/p lumbar fusion (1) S/P lumbar spinal fusion ICD Code: Z98.1 - Arthrodesis status Brief History Ms Booker is a 67 year-old female who presented with intractable mechanical back pain and nick evidence of L5 lower extremity radiculopathy. She has history of prior L4-5 laminectomy, and developed spondylolisthesis. The patient has failed maximum nonsurgical management including multiple modalities of conservative treatment as well as pain management interventions by an interventional pain specialist. A surgical decompression and arthrodesis were indicated as a last resort. CBC/BMP: 07/22/17 0613 07/22/17 0613 Significant Findings Laboratory Tests Test 07/22/17 06:13 White Blood Count 14.2 TH/MM3 (4.0-11.0) Red Blood Count 3.49 MIL/MM3 (4.00-5.30) Hemoglobin 10.8 GM/DL (11.6-15.3) Hematocrit 31.5 % (35.0-46.0) Neutrophils (%) (Auto) 90.3 % (16.0-70.0) Lymphocytes (%) (Auto) 4.7 % (9.0-44.0) Neutrophils # (Auto) 12.8 TH/MM3 (1.8-7.7) Lymphocytes # (Auto) 0.7 TH/MM3 (1.0-4.8) Total Protein 6.2 GM/DL (6.4-8.2) Albumin 3.2 GM/DL (3.4-5.0) Estimat Glomerular Filtration Rate 65 ML/MIN (>89) Thyroid Stimulating Hormone 3rd Gen 0.249 uIU/ML (0.358-3.740) Imaging Last Impressions Lumbar Spine X-Ray 07/21/17 0000 Signed Impressions: Service Date/Time: Friday, July 21, 2017 09:46 - CONCLUSION: 1. Status post posterior fixation at L4-5 with intact sagittal alignment and no evidence for significant acute fracture, as above. Nick Alvarez MD Hospital Course Ms. Booker underwent a L4-5 redo lumbar laminectomy, interbody arthrodesis using PEEK cage and autologous bone graft, L4-5 instrumental fixation using transpedicular screws and rods, L4-5 posterolateral fusion using autologous bone graft and rods, microsurgical dissection on Jul 21, 2017 for spondylolisthesis. Her postoperative pain was managed with HORSERADISH MAKER pump that was subsequently weaned off. Her surgical pain improved and tolerable on oral pain medications. She was discharged home in stable conditions. Wound care and activity restrictions were discussed. Pt Condition on Discharge: Good Discharge Disposition: Disch w/ Home Health Serv Discharge Instructions DIET: Follow Instructions for: Heart Healthy Diet ACTIVITIES You can perform: Weight Bearing As Wandy ADDITIONAL Activity Instructio: Avoid strenuous activities, heavy lifting over 5 lbs, overhead activities, repetitive bending, twisting, pushing, pulling or any activities which might result in stress over the spine. Avoid situation that will put at risk for falls. Use assistive device as needed for walking. Wear TLSO when out of bed. Follow up Referrals: Appointment for Follow Up with Dilip Werner MD New Medications: Oxycodone-Acetaminophen (Oxycodone-Acetaminophen) 10-325 mg Tab 1 TAB PO Q8HR PRN for PAIN SCALE 1 TO 10, #62 TAB Tizanidine (Zanaflex) 4 Mg Tab 4 MG PO Q8H PRN for MUSCLE SPASM, #90 TAB 0 Refills Continued Medications: Albuterol 8.5 GM Inh (Proair Hfa 8.5 GM Inh) 90 Mcg/Act Aer 1 PUFF INH Q4H PRN for SHORTNESS OF BREATH, #1 INHALER 0 Refills 108 mcg/actuation Albuterol Neb (Albuterol Neb) 2.5 Mg/3 Ml Neb 2.5 MG NEB Q4HR NEB PRN for SHORTNESS OF BREATH, #60 NEBULE 0 Refills Alprazolam (Alprazolam) 0.5 Mg Tab 0.5 MG PO Q6H PRN for ANXIETY, TAB 0 Refills Amlodipine (Amlodipine) 2.5 Mg Tab 2.5 MG PO DAILY for Blood Pressure Management, #30 TAB [address] (Aspir-81) 81 Mg Tabdr 81 MG PO DAILY Duloxetine DR (Duloxetine DR) 60 Mg Capdr 60 MG PO DAILY, #30 CAP 0 Refills Epinephrine Inj (Epipen 2-Bertin Inj) 0.3 Mg/0.3 Ml Pfpen 0.3 MG IM ONCE PRN for ALLERGIC REACTION, #1 PACK 0 Refills Fexofenadine (Belén Allergy) 180 Mg Tab 180 MG PO DAILY for Allergy Management, #30 TAB 0 Refills Fluticasone Nasal [place] (Flonase Nasal [place]) 50 Mcg/Act [place] 50 MCG EACH NARE BID for Allergies, #1 BOTTLE 0 Refills Levothyroxine (Levothyroxine) 75 Mcg Tab 75 MCG PO DAILY PRN for Thyroid, #30 TAB 0 Refills Oxycodone-Acetaminophen (Percocet) 5-325 mg Tab 1 TAB PO Q8HR PRN for PAIN, #60 TAB 0 Refills Terconazole Vaginal Cream (Terconazole Vaginal Cream) 0.8 % Cream Junie Walter Jul 23, 2017 10:38
[2017-07-23 11:48] VITALS: BP 116/60; PULSE 98; RESP 18; TEMP 97.4; O2SAT 99
[2017-07-23 12:22] VITALS: RESP 18
--- NOTE | 2017-07-23 14:09 | HHI.FF ---
Face to Face Verification Diagnosis: (1) S/P lumbar spinal fusion Physical Therapy Order: Improve ambulation, Strength and gait training (gentle leg exercises) Home Health Nursing Order: Medical education Medication education-adverse effect Wound care and dressing changes (please see wound care discharge instructions) Nursing assessment with vital signs I have seen patient Brittani Booker on 07/23/17. My clinical findings support the need for the requested home health care services because: Deconditioned w/ increased weakness I certify that my clinical findings support that this patient is homebound because: Post-op weakness Junie Walter Jul 23, 2017 14:09
== END 2017-07-23 15:48 | disposition home health service (06) | DRG 460 ==
LOC: HSDI 06:04 → N06A 14:50
PROVIDERS: ADMIT Neurological Surgery; ATTEND Neurological Surgery
PROC: 0SB20ZZ Excision of Lumbar Vertebral Disc, Open Approach (ICD-10-PCS; 2017-07-21)
PROC: 0SG00AJ Fusion of Lumbar Vertebral Joint with Interbody Fusion Device, Posterior Approach, Anterior Column, Open Approach (ICD-10-PCS; principal; 2017-07-21 08:30)
DX: M43.16 Spondylolisthesis, lumbar region (principal); I10 Essential (primary) hypertension; M54.16 Radiculopathy, lumbar region; E03.9 Hypothyroidism, unspecified; G89.29 Other chronic pain; G47.33 Obstructive sleep apnea (adult) (pediatric); F41.8 Other specified anxiety disorders; E78.5 Hyperlipidemia, unspecified; J45.909 Unspecified asthma, uncomplicated; M19.90 Unspecified osteoarthritis, unspecified site; K59.00 Constipation, unspecified; Z90.710 Acquired absence of both cervix and uterus; Z85.42 Personal history of malignant neoplasm of other parts of uterus; Z87.891 Personal history of nicotine dependence
CPT/HCPCS: 72100; 76000; 80053; 83036; 83735; 84100; 84439; 84443; 85025; 86850; 86900; 86901; 94150; 94664; C9113; J0131; J0690; J1170; J1200; J1580; J3370; J3480; J7050; J7120; L0200; L0484